=== PATIENT | female | born 1950 | race Caucasian/White ===

== ENCOUNTER 2016-09-16 10:29 | Emergency (ER) | payer MEDICARE, OTHER ==
--- NOTE | 2016-09-16 11:46 | ER Document Report ---
ED Medical Screen (RME) - General Chief Complaint: Toe Injury Stated Complaint: TOE INJURY Notes: injury to right third toe on Thursday c/o pain, swelling able to walk Patient has been evaluated and I have completed a rapid medical examination. A complete history and physical examination along with evaluation of workup will be completed by the provider once a bed is assigned TRAVEL OUTSIDE OF THE [place] IN LAST 30 DAYS: No - Related Data Allergies/Adverse Reactions: No Known Allergies Allergy (Unverified 04/27/16 15:18) Past Medical History Neurological Medical History: Reports: Hx Migraine - Immunizations Hx Diphtheria, Pertussis, Tetanus Vaccination: Yes Physical Exam - Vital signs Vitals: Temp Pulse Resp BP Pulse Ox 98.0 F 58 L 16 104/61 100 09/16/16 11:31 09/16/16 11:31 09/16/16 11:31 09/16/16 11:31 09/16/16 11:31 Course - Vital Signs Vital signs: Temp Pulse Resp BP Pulse Ox 98.0 F 58 L 16 104/61 100 09/16/16 11:31 09/16/16 11:31 09/16/16 11:31 09/16/16 11:31 09/16/16 11:31
[2016-09-16] MEDS ORDERED: ACETAMINOPHEN 325 MG TABLET PO ONE (11:47)
--- NOTE | 2016-09-16 14:05 | ER Document Report ---
ED General - General Chief Complaint: Toe Injury Stated Complaint: TOE INJURY TRAVEL OUTSIDE OF THE [place] IN LAST 30 DAYS: No - HPI Patient complains to provider of: right third toe injury Notes: This coming in for evaluation of right third toe injury. States that she hit on a bed while cleaning up her room. States his a painful swollen. Denies any other injuries denies history diabetes hypertension. - Related Data Allergies/Adverse Reactions: No Known Allergies Allergy (Unverified 04/27/16 15:18) Past Medical History - Social History Smoking Status: Never Smoker Chew tobacco use (# tins/day): No Frequency of alcohol use: Occasional Drug Abuse: None Family History: Reviewed & Not Pertinent Patient has suicidal ideation: No Patient has homicidal ideation: No Neurological Medical History: Reports: Hx Migraine Renal/ Medical History: Denies: Hx Peritoneal Dialysis - Immunizations Hx Diphtheria, Pertussis, Tetanus Vaccination: Yes Review of Systems - Review of Systems Constitutional: No symptoms reported EENT: No symptoms reported Cardiovascular: No symptoms reported Respiratory: No symptoms reported Gastrointestinal: No symptoms reported Genitourinary: No symptoms reported Female Genitourinary: No symptoms reported Musculoskeletal: Other - Toe pain Skin: No symptoms reported Hematologic/Lymphatic: No symptoms reported Neurological/Psychological: No symptoms reported -: Yes All other systems reviewed and negative Physical Exam - Vital signs Vitals: Temp Pulse Resp BP Pulse Ox 98.0 F 58 L 16 104/61 100 09/16/16 11:31 09/16/16 11:31 09/16/16 11:31 09/16/16 11:31 09/16/16 11:31 Interpretation: Normal - General General appearance: Appears well, Alert - HEENT Head: Normocephalic, Atraumatic Eyes: Normal Pupils: PERRL - Respiratory Respiratory status: No respiratory distress Chest status: Nontender Breath sounds: Normal Chest palpation: Normal - Cardiovascular Rhythm: Regular Heart sounds: Normal auscultation Murmur: No - Abdominal Inspection: Normal Distension: No distension Bowel sounds: Normal Tenderness: Nontender Organomegaly: No organomegaly - Back Back: Normal, Nontender - Extremities General upper extremity: Normal inspection, Nontender, Normal color, Normal ROM , Normal temperature General lower extremity: Tender - Patient's third toes is swollen erythematous on the right side painful range of motion painful palpable, Normal color, Normal ROM, Normal temperature, Normal weight bearing. No: Normal inspection, Nontender, Timothy's sign - Neurological Neuro grossly intact: Yes Cognition: Normal Orientation: AAOx4 [place] Coma Scale Eye Opening: Spontaneous Mukul Coma Scale Verbal: Oriented Mukul Coma Scale Motor: Obeys Commands [place] Coma Scale Total: 15 Speech: Normal Motor strength normal: LUE, RUE, LLE, RLE Sensory: Normal - Psychological Associated symptoms: Normal affect, Normal mood - Skin Skin Temperature: Warm Skin Moisture: Dry Skin Color: Normal Course - Re-evaluation Re-evalutation: 09/16/16 20:29 Patient with a small fracture. Patient was cipriano taped and placed in a postop shoe. Patient was discharged home - Vital Signs Vital signs: Temp Pulse Resp BP Pulse Ox 98.0 F 55 L 16 100/60 100 09/16/16 14:34 09/16/16 14:34 09/16/16 14:34 09/16/16 14:34 09/16/16 14:34 Procedures - Immobilization Right 3rd digit Pre-Proc Neuro Vasc Exam: Normal Immobilizer type: Post-op shoe - With cipriano taping Performed by: PCT Post-Proc Neuro Vasc Exam: Normal Alignment checked and good: Yes Discharge - Discharge Clinical Impression: Toe fracture, right Qualifiers: Encounter type: initial encounter Toe: unspecified toe Fracture type: closed Fracture alignment: nondisplaced Qualified Code(s): S92.911A - Unspecified fracture of right toe(s), initial encounter for closed fracture Condition: Good Disposition: HOME, SELF-CARE Instructions: Fractured Toe ([facility]), Oral Narcotic Medication ([facility]) Additional Instructions: Take Tylenol Motrin for pain. Take hydrocodone prescribed for very severe pain. Return to the ER if symptoms worsen. Prescriptions: Hydrocodone Bit/Acetaminophen [Hydrocodon-Acetaminophen 5-325] 1 each PO Q6 #20 tablet Referrals: ANDREA CLIFTON MD [ACTIVE STAFF] - Follow up as needed
[2016-09-16 14:45] VITALS: BP 100/60
== END 2016-09-16 14:35 | disposition home or self-care (01) ==
LOC: ER 10:29
DX: S92.911A Unspecified fracture of right toe(s), initial encounter for closed fracture (principal); X58.XXXA Exposure to other specified factors, initial encounter
CPT/HCPCS: 99283; 73660; A9270

== ENCOUNTER 2018-07-12 11:51 | Emergency (ER) | payer MEDICARE, OTHER ==
--- NOTE | 2018-07-12 12:38 | ER Document Report ---
ED Medical Screen (RME) - General Chief Complaint: Knee Pain Stated Complaint: RIGHT KNEE PAIN Time Seen by Provider: 07/12/18 12:37 Mode of Arrival: Ambulatory Information source: Patient Notes: Patient presents emergency department with right knee pain. Reports she has had the knee pain for years but recently her right knee is giving out. Denies trauma. Reports swelling to back of knee. I have greeted and performed a rapid initial assessment of this patient. A comprehensive ED assessment and evaluation of the patient, analysis of test results and completion of the medical decision making process will be conducted by additional ED providers. TRAVEL OUTSIDE OF THE [place] IN LAST 30 DAYS: No - Related Data Allergies/Adverse Reactions: No Known Allergies Allergy (Verified 07/12/18 11:52) Past Medical History Neurological Medical History: Reports: Hx Migraine Renal/ Medical History: Denies: Hx Peritoneal Dialysis - Immunizations Hx Diphtheria, Pertussis, Tetanus Vaccination: Yes Physical Exam - Vital signs Vitals: Temp Pulse Resp BP Pulse Ox 98.2 F 65 14 124/65 99 07/12/18 11:58 07/12/18 11:58 07/12/18 11:58 07/12/18 11:58 07/12/18 11:58 Course - Vital Signs Vital signs: Temp Pulse Resp BP Pulse Ox 98.2 F 65 14 124/65 99 07/12/18 11:58 07/12/18 11:58 07/12/18 11:58 07/12/18 11:58 07/12/18 11:58 Doctor's Discharge - Discharge Referrals: LETTY CONNER MD [Primary Care Provider] - Follow up as needed
--- NOTE | 2018-07-12 13:42 | RADIOLOGY REPORT (SQ) ---
EXAM DESCRIPTION: KNEE RIGHT 4 VIEWS COMPLETED DATE/TIME: 07/12/2018 1:19 pm REASON FOR STUDY: right knee pain COMPARISON: None. NUMBER OF VIEWS: Four views. TECHNIQUE: AP, lateral, and both oblique radiographic images acquired of the right knee. LIMITATIONS: None. FINDINGS: MINERALIZATION: Normal. BONES: No acute fracture. No lytic or blastic lesions. There is some flattening of the medial femor al condyles articular surface with subarticular sclerosis from a probable chronic osteochondral defec t JOINT: No effusion. Mild bony spurring along the medial compartment and patellofemoral compartment SOFT TISSUES: No soft tissue swelling. No radio-opaque foreign body. OTHER: No other significant finding. IMPRESSION: No acute fracture or malalignment. Chronic osteochondral defect weight-bearing surface medial femoral condyle TECHNICAL DOCUMENTATION: JOB ID: [id number] [employer]- All Rights Reserved Reading location - IP/workstation name: [email or web address]
--- NOTE | 2018-07-12 16:17 | ER Document Report ---
ED Extremity Problem, Lower - General Chief Complaint: Knee Pain Stated Complaint: RIGHT KNEE PAIN Time Seen by Provider: 07/12/18 12:37 Mode of Arrival: Ambulatory Information source: Patient Notes: 67-year-old female presented to ED for complaint of pain in the right knee for 2 or more weeks worse the last 1-1/2 days. She states that she has pain behind the knee and down the right calf. She is alert and oriented respirations regular and unlabored patient is able to ambulate but it is painful. She states sometimes that the leg bacilio under her. She also has a history of back pain with sciatica. TRAVEL OUTSIDE OF THE [place] IN LAST 30 DAYS: No - HPI Patient complains to provider of: Pain, Swelling Location: Knee - And calf Occurred: Other - 2 weeks worse the last 1-1/2 days Quality of pain: Sharp, Throbbing Severity: Moderate Pain Level: 3 Context: Other Recent injury: No Associated symptoms: Painful ambulation Exacerbated by: Movement Relieved by: Elevation - Related Data Allergies/Adverse Reactions: No Known Allergies Allergy (Verified 07/12/18 11:52) Past Medical History - General Information source: Patient - Social History Smoking Status: Never Smoker Cigarette use (# per day): No Chew tobacco use (# tins/day): No Smoking Education Provided: No Frequency of alcohol use: Occasional Drug Abuse: None Lives with: Family Family History: Reviewed & Not Pertinent Patient has suicidal ideation: No Patient has homicidal ideation: No - Past Medical History Cardiac Medical History: Reports: None Pulmonary Medical History: Reports: None EENT Medical History: Reports: None Neurological Medical History: Reports: Hx Migraine Endocrine Medical History: Reports: None Renal/ Medical History: Reports: None Malignancy Medical History: Reports: None GI Medical History: Reports: None Musculoskeletal Medical History: Reports None Skin Medical History: Reports Hx Cellulitis Psychiatric Medical History: Reports: None Traumatic Medical History: Reports: None Infectious Medical History: Reports: None Surgical Hx: Negative - Immunizations Hx Diphtheria, Pertussis, Tetanus Vaccination: Yes Review of Systems - Review of Systems Constitutional: No symptoms reported EENT: No symptoms reported Cardiovascular: No symptoms reported Respiratory: No symptoms reported Gastrointestinal: No symptoms reported Genitourinary: No symptoms reported Female Genitourinary: No symptoms reported Musculoskeletal: Joint pain - Right knee pain swelling to the back of the knee with pain to the right calf Skin: No symptoms reported Hematologic/Lymphatic: No symptoms reported Neurological/Psychological: No symptoms reported -: Yes All other systems reviewed and negative Physical Exam - Vital signs Vitals: Temp Pulse Resp BP Pulse Ox 98.2 F 65 14 124/65 99 07/12/18 11:58 07/12/18 11:58 07/12/18 11:58 07/12/18 11:58 07/12/18 11:58 Interpretation: Normal - General General appearance: Appears well, Alert - HEENT Head: Normocephalic, Atraumatic Eyes: Normal Pupils: PERRL - Respiratory Respiratory status: No respiratory distress Chest status: Nontender Breath sounds: Normal Chest palpation: Normal - Cardiovascular Rhythm: Regular Heart sounds: Normal auscultation Murmur: No - Abdominal Inspection: Normal Distension: No distension Bowel sounds: Normal Tenderness: Nontender Organomegaly: No organomegaly - Back Back: Normal, Nontender - Extremities General upper extremity: Normal inspection, Nontender, Normal color, Normal ROM , Normal temperature General lower extremity: Normal color, Normal ROM, Normal temperature, Normal weight bearing. No: Timothy's sign Knee: Tender, Pain with ROM, Patellar tendon intact, Popliteal fossa tender. No : Abrasion, Deformity, Dislocation, Drawer's test instability, Ecchymosis, Instability, Joint effusion, Laceration, Laxity with valgus stress, Tender joint line, Unable to bear weight Calf: Tender - Neurological Neuro grossly intact: Yes Cognition: Normal Orientation: AAOx4 [place] Coma Scale Eye Opening: Spontaneous Mukul Coma Scale Verbal: Oriented [place] Coma Scale Motor: Obeys Commands Mukul Coma Scale Total: 15 Speech: Normal Motor strength normal: LUE, RUE, LLE, RLE Sensory: Normal - Psychological Associated symptoms: Normal affect, Normal mood - Skin Skin Temperature: Warm Skin Moisture: Dry Skin Color: Normal Course - Re-evaluation Re-evalutation: 07/12/18 21:08 X-ray and Doppler reports given to patient to follow-up with her primary doctor and orthopedics. Patient was treated with Lauri wrap refused crutches refused knee immobilizer patient was discharged home. - Vital Signs Vital signs: Temp Pulse Resp BP Pulse Ox 98.3 F 62 16 124/53 L 100 07/12/18 16:29 07/12/18 16:29 07/12/18 16:29 07/12/18 16:29 07/12/18 16:29 - Diagnostic Test Radiology reviewed: Image reviewed, Reports reviewed Discharge - Discharge Clinical Impression: Right knee pain Qualifiers: Chronicity: acute Qualified Code(s): M25.561 - Pain in right knee Condition: Stable Disposition: HOME, SELF-CARE Instructions: Family Physicians / Practices Additional Instructions: SUSPECTED INTERNAL KNEE INJURY: The examiner of your injured knee suspects an internal injury to the cartilage or internal ligaments. This must be further investigated by an corporate communications specialist. The knee should be protected, ice packed, and elevated while awaiting your follow-up exam by the orthopedist. If there is severe swelling, severe pain, or any new symptoms while awaiting your exam, you should call the orthopedist. (If he/she is unavailable, call us or return for re-examination.) LAURI WRAP: A compression dressing (lauri wrap) has been placed. This helps hold the area still. It limits swelling and internal bleeding. The wrap should be comfortably snug -- not tight. You should feel a sense of pressure, but not severe pain under the wrap. Unless the physician tells you otherwise, you can adjust the wrap for comfort. If the wrap causes symptoms suggesting it's too tight -- uncomfortable pressure, swelling or discoloration beyond the wrap, numbness, or severe pain - - you must loosen the wrap. If these symptoms don't resolve promptly, return for re-evaluation. ICE & ELEVATION: Apply ice packs frequently against the painful area. Many different schedules are recommended, such as "20 minutes on, 20 minutes off" or "one hour ice, two hours rest." If you need to work, you may need to go longer between ice treatments. You should plan to have the area ice packed AT LEAST one- fourth of the time. The ice should be applied over the wrap, tape, or splint, or over a layer of cloth -- not directly against the skin. Some ice bags have a built-in cloth and can be put directly on the skin. Your injured part should be elevated as much as possible over the next 48 hours. Try to keep the injury above the level of the heart. Avoid use of the injured area. Elevation and rest will decrease the swelling. USE OF [id number] IBUPROFEN: Ibuprofen (Advil, Nuprin, Medipren, Motrin IB) is a medication for fever and pain control. In addition, it has anti- inflammatory effects which may be beneficial, especially in the treatment of injuries. It's best to take ibuprofen with food. Persons with ulcer disease or allergy to aspirin should notify their physician of this before taking ibuprofen. Ibuprofen can be given every four to six hours, for a total of four doses daily. Age Pain or fever dose Antiinflammatory dose 6-8 yr 200 mg (1 tab) 200 mg (1 tab) 9-11 yr 200 mg (1 tab) 200-400 mg (1-2 tab) 11-14 yr 200-400 mg (1-2 tab) 400 mg (2 tab) 15-adult 400 mg (2 tab) 600 mg (3 tab) Knee Exercise Program It's important to strengthen the muscles around the knee. This protects the injured area and stabilizes a knee that's been loosened by ligament injury. EARLY - Even when motion of the knee is painful (even when wearing a splint ), you can begin isometric "quads" exercises. While sitting, hold the knee out, and contract the muscles to stiffen it. It shouldn't be straightened all the way -- stiffen it in a slightly-bent position. Lift the leg and draw a "T" with your foot, up to 100 times. When it becomes easy, add a weight on your foot. LATE - When the doctor advises you, you can begin moving the knee against resistance. The front muscles (quadriceps) are most important. While sitting at a [employer], straighten the knee forcefully while pushing a weight up with your ankle. Start with five to 10 pounds. Do 10 to 20 repetitions, increasing the weight as tolerated. Don't use more weight than is comfortable! Over a few weeks, work up to 35 to 50 pounds. Athletes should try to reach 70 to 90 pounds. FOLLOW-UP CARE: If you have been referred to a physician for follow-up care, call the physician s office for an appointment as you were instructed or within the next two days. If you experience worsening or a significant change in your symptoms, notify the physician immediately or return to the Emergency Department at any time for re-evaluation. Can follow-up with your corporate communications specialist from [place] also by telephone tomorrow and schedule follow-up appointment for you can use the number that I provided for Maggie or so which is here in [place]. It would probably be better if you followed up with [place] or so who you are already seeing. I provided you with a CD of your x-ray and of your Doppler to follow-up with Colton Umanzor. Referrals: LETTY CONNER MD [ACTIVE STAFF] - Follow up as needed [facility] [Provider Group] - Follow up as needed
[2018-07-12 16:30] VITALS: BP 124/53
--- NOTE | 2018-07-12 16:53 | XCELERA REPORT ---
[address] [place] [facility] [address] Lower Extremity Venous Evaluation Procedure: Color flow and duplex imaging of the veins of the right lower extremity as well as the left Common Femoral vein. Right Sided Venous Evaluation Normal vessel filling wall to wall, compression and augmentation as well as Colour flow down to the infrageniculate veins. Left Sided Venous Evaluation The left common femoral vein is fully compressible. Spontaneous and phasic flow is present in the left common femoral vein. Interpretation Summary No duplex evidence of DVT or obstruction in the right lower extremity nor in the left Common Femoral vein. Name: LLUVIA COHEN Age: 67 yrs Gender: Female : 1950 Patient Status: Emergency Patient Location: ER Study Date: 07/12/2018 03:40 PM Reason For Study: right posterior lower leg and knee pain Ordering Physician: COURTNEY RICHARDSON Performed By: Nga Gonzales : COURTNEY RICHARDSON > Pancho Ribeiro
== END 2018-07-12 16:30 | disposition home or self-care (01) ==
LOC: ER 11:51
DX: M25.561 Pain in right knee (principal); M54.30 Sciatica, unspecified side; M79.604 Pain in right leg; M54.9 Dorsalgia, unspecified
CPT/HCPCS: 93971; 99284

== ENCOUNTER → 2019-09-14 | Outpatient (CLI) | payer MEDICARE, OTHER ==
--- NOTE | 2019-09-14 15:16 | RADIOLOGY REPORT (SQ) ---
EXAM DESCRIPTION: MRI LUMBAR SPINE WITHOUT COMPLETED DATE/TIME: 09/14/2019 1:09 pm REASON FOR STUDY: M54.5 LOW BACK PAIN M54.5 LOW BACK PAIN COMPARISON: None. TECHNIQUE: Sagittal and Axial imaging includes T1, T2, STIR and gradient echo sequences. Coronal T2/ HASTE imaging. LIMITATIONS: None. FINDINGS: VISUALIZED UPPER ABDOMEN: Limited evaluation. No acute or suspicious findings suggested. SEGMENTATION: No transitional anatomy. The lowest well-developed disc space is labeled L5-S1. ALIGNMENT: Dextroscoliosis. Mild kyphosis at the thoracolumbar junction. VERTEBRAE: Intact. BONE MARROW: Reactive marrow changes is seen at the L1-2 level. DISC SIGNAL: Disc spaces are narrowed throughout the with visible spine. There is decreased T2 signa l intensity throughout. POSTERIOR ELEMENTS: Generally intact. No pars defect evident. HARDWARE: None in the spine. CORD AND CONUS: Normal in size and signal intensity. Conus at the T12-L1 level. SOFT TISSUES: No aortic aneurysm seen. No bulky retroperitoneal adenopathy or mass. No paraspinal mas s or fluid. L1-L2: Shallow circumferential disc bulge with mild left foraminal stenosis. The bulging disc may co ntact the exiting nerve root outside of the neural foramen. L2-L3: Broad-based disc/osteophyte complex with central prominence. Mild facet and ligament hypertro phy. Mild central canal stenosis. There appears to be slight dorsal displacement of the traversing nerve roots on the right. L3-L4: Shallow circumferential disc bulge. Mild facet and ligament hypertrophy. Mild central canal stenosis. No significant foraminal stenosis. L4-L5: Shallow, broad-based disc/osteophyte complex. Mild facet and ligament hypertrophy. Mild cent ral canal stenosis. No foraminal stenosis. L5-S1: No significant spinal stenosis or exit foraminal stenosis. LOWER THORACIC: Incompletely imaged. No stenosis seen. SACRUM: Visualized upper sacrum intact. OTHER: No other significant findings. IMPRESSION: Mild scoliosis. Mild kyphosis. Facet arthropathy at multiple levels. Disc changes as described. Mild central canal stenoses at L2-3, L3-4, and L4-5. Mild left foraminal stenosis at L1- 2. TECHNICAL DOCUMENTATION: JOB ID: [id number]- All Rights Reserved Reading location - IP/workstation name: [email or web address]
== END ==
LOC: RAD 11:57
DX: M54.5 Low back pain (principal)
CPT/HCPCS: 72148